=== PATIENT | male | born 1965 | race African-American/Black ===

== ENCOUNTER 2017-12-30 20:50 | Emergency (ER) | payer SELFPAY ==
[~2017-12-30] VITALS: Ht 180.3 cm; Wt 79.5 kg
[2017-12-31] MEDS ORDERED: ACETAMINOPHEN WITH CODEINE 300/30MG TABLET PO ONE
[2017-12-31] MEDS ORDERED: TETANUS, DIPHTHERIA, PERTUSSIS VAC/PF 0.5ML (>7YR OLD) IM ONE
[2017-12-31] MEDS ORDERED: SODIUM CHLORIDE 0.9% 1,000 ML IV ONE (00:12)
[2017-12-31 01:10] VITALS: BP 105/66
[2017-12-31] MEDS ORDERED: LIDOCAINE HCL 1% 20ML VIAL (Pyxis) INJ INFIL ONE (02:45)
== END 2017-12-31 03:59 | disposition home or self-care (01) ==
LOC: ER 20:50
DX: S91.011A Laceration without foreign body, right ankle, initial encounter (principal); Z88.2 Allergy status to sulfonamides; W25.XXXA Contact with sharp glass, initial encounter; Y93.89 Activity, other specified; Y92.89 Other specified places as the place of occurrence of the external cause; Y99.8 Other external cause status
CPT/HCPCS: 12002; 73610; 73630; 90471; 90715; 96360; 96361; 99285; A4217; J3490; J7030; Z7610; 99284

== ENCOUNTER 2018-01-01 16:48 | Emergency (ER) | payer SELFPAY ==
[~2018-01-01] VITALS: Ht 180.3 cm; Wt 81.0 kg
[2018-01-01 16:54] VITALS: BP 132/72
== END 2018-01-01 17:10 | disposition home or self-care (01) ==
LOC: ER 17:05
DX: Z48.00 Encounter for change or removal of nonsurgical wound dressing (principal)
CPT/HCPCS: 99281

== ENCOUNTER 2018-01-11 15:38 | Emergency (ER) | payer SELFPAY ==
[~2018-01-11] VITALS: Ht 180.3 cm; Wt 79.0 kg
[2018-01-11 22:53] LABS: BASOPHILS % 0.3 % (0.0-2.0); EOSINOPHILS % 2.1 % (0.0-5.0); HEMATOCRIT. 36.3 % (42.0-52.0); HEMOGLOBIN. 12.2 g/dL (14.0-18.0); LYMPHOCYTES % 25.6 % (20.0-50.0); MEAN CORPUSCULAR HEMOGLOBIN 28.6 pg (28.0-32.0); MEAN PLATELET VOLUME 7.5 fl (7.4-10.4); MONOCYTES % 7.7 % (2.0-8.0); NEUTROPHILS % 64.3 % (40.0-76.0); PLATELET 196 x1000/uL (130-400); RED BLOOD CELL COUNT 4.28 mill/uL (4.7-6.1); RED CELL DISTRIBUTION WIDTH 15.2 % (11.6-14.6)
[2018-01-11 22:59] LABS: CHLORIDE 107 mEq/L (98-107)
[2018-01-12] MEDS ORDERED: LIDOCAINE HCL/PF 1% 10 MG/ML 5ML VIAL IJ NR
[2018-01-12] MEDS ORDERED: LIDOCAINE HCL 1% 20ML VIAL (Pyxis) INJ MC ONE
[2018-01-12 00:40] VITALS: BP 125/85
[2018-01-13] MEDS ORDERED: IBUP-2030 PO (09:49)
== END 2018-01-12 00:41 | disposition home or self-care (01) ==
LOC: ER 15:38
DX: T81.4XXA Infection following a procedure, initial encounter (principal); L02.415 Cutaneous abscess of right lower limb; Z48.02 Encounter for removal of sutures; Z88.2 Allergy status to sulfonamides; W20.8XXA Other cause of strike by thrown, projected or falling object, initial encounter; Y93.89 Activity, other specified; Y92.89 Other specified places as the place of occurrence of the external cause; Y99.8 Other external cause status
CPT/HCPCS: 10060; 36415; 73610; 80048; 83605; 85025; 99285; J3490; Z7610

== ENCOUNTER 2018-01-13 09:43 | Emergency (ER) | payer SELFPAY ==
[~2018-01-13] VITALS: Ht 180.3 cm; Wt 77.5 kg
[2018-01-13] MEDS ORDERED: IBUP-2030 PO (09:49)
[2018-01-13] MEDS ORDERED: HYDROCODONE/ACETAMINOPHEN 5/325MG TABLET PO ONE (11:30)
[2018-01-13 12:09] VITALS: BP 125/88
== END 2018-01-13 12:24 | disposition home or self-care (01) ==
LOC: ER 09:52
DX: Z48.01 Encounter for change or removal of surgical wound dressing (principal)
CPT/HCPCS: 99283

== ENCOUNTER 2018-01-16 17:41 | Emergency (ER) | payer SELFPAY ==
[~2018-01-16] VITALS: Ht 180.3 cm; Wt 79.0 kg
[~2018-01-16 17:41] MED LIST: IBUP-2030 PO
[2018-01-16 18:31] VITALS: BP 128/79
== END 2018-01-16 22:58 | disposition left against medical advice (07) ==
LOC: ER 21:59
DX: Z48.00 Encounter for change or removal of nonsurgical wound dressing (principal); Z88.2 Allergy status to sulfonamides
CPT/HCPCS: 99281

== ENCOUNTER 2018-01-17 06:29 | Emergency (ER) | payer SELFPAY ==
[~2018-01-17] VITALS: Ht 180.3 cm; Wt 79.0 kg
[2018-01-17 08:38] VITALS: BP 128/73
== END 2018-01-17 08:42 | disposition home or self-care (01) ==
LOC: ER 06:29
DX: Z48.00 Encounter for change or removal of nonsurgical wound dressing (principal)
CPT/HCPCS: 99283; Z7610

== ENCOUNTER 2018-01-23 08:44 | Emergency (ER) | payer SELFPAY ==
[~2018-01-23] VITALS: Ht 180.3 cm; Wt 80.0 kg
[2018-01-23 11:29] VITALS: BP 139/85
== END 2018-01-23 15:15 | disposition home or self-care (01) ==
LOC: ER 09:37
DX: Z48.00 Encounter for change or removal of nonsurgical wound dressing (principal)
CPT/HCPCS: 99283